=== PATIENT | male | born 1985 | race African-American/Black ===

== ENCOUNTER 2018-02-23 20:17 | Emergency (ER) | payer OTHER ==
[2018-02-23] MEDS ORDERED: TETANUS & DIPHTHERIA TOX,ADULT 0.5 ML VIAL ONE (21:09)
[2018-02-23] MEDS ORDERED: CEFAZOLIN SODIUM 1 GM/VIAL ONE (21:56)
[2018-02-23] MEDS ORDERED: WATER FOR INJ,STERILE 10 ML ONE (21:57)
--- NOTE | 2018-02-23 23:02 | ER ---
Nurse's Notes [facility] Name: Carrington Raines Age: 32 yrs Sex: Male : 1985 Arrival Date: 02/23/2018 Time: 20:18 Bed 16 Private MD: None, None Diagnosis: Displaced fracture of distal phalanx of left little finger;finger laceration Presentation: 02/23 20:15 Presenting complaint: Patient states: that he got his left pinky finger smashed in cell door at 1700. Transition of care: patient was not received from another setting of care. Onset of symptoms was February 23, 2018 at 17:00. Risk Assessment: Do you want to hurt yourself or someone else? Patient reports no desire to harm self or others. Initial Sepsis Screen: Does the patient meet any 2 criteria? No. Patient's initial sepsis screen is negative. Does the patient have a suspected source of infection? No. Patient's initial sepsis screen is negative. Care prior to arrival: Bleeding of injury controlled. 20:15 Method Of Arrival: Law Enforcement: [place] [employer] 20:15 Acuity: MEERA 4 Triage Assessment: 20:21 General: Appears uncomfortable, slender, Behavior is calm, cooperative, appropriate for age. Pain: Complains of pain in left little finger Pain currently is 8 out of 10 on a pain scale. Quality of pain is described as aching, throbbing, Pain began 3 hours ago. Is continuous, Aggravated by increased activity, repositioning. EENT: No deficits noted. Neuro: Level of Consciousness is awake, alert, obeys commands, Oriented to person, place, time, situation. Cardiovascular: No deficits noted. Respiratory: No deficits noted. GI: No deficits noted. : No deficits noted. Derm: Skin is pink, warm \T\ dry. Musculoskeletal: Circulation, motion, and sensation intact. Capillary refill < 3 seconds, Range of motion: limited in DIP of left little finger, PIP of left little finger and MCP of left little finger Reports pain in left little finger. Injury Description: Laceration sustained to left little finger is full thickness, 2.6 to 7.5 cm long, bleeding moderately, was sustained 2-4 hours ago. moderate bleeding noted at this time. A dressing was applied. Historical: - Allergies: 20:21 No Known Allergies; fc - Home Meds: 20:21 None [Active]; fc - PMHx: 20:21 None; fc - PSHx: 20:21 None; fc - Immunization history:: Last tetanus immunization: unknown. - Social history:: Smoking status: Patient/guardian denies using tobacco, Patient uses street drugs, marijuana. - Ebola Screening: : Patient negative for fever greater than or equal to 101.5 degrees Fahrenheit, and additional compatible Ebola Virus Disease symptoms Patient denies exposure to infectious person Patient denies travel to an Ebola-affected area in the 21 days before illness onset. Screenin:23 Abuse screen: Denies threats or abuse. Nutritional screening: No deficits noted. fc Tuberculosis screening: No symptoms or risk factors identified. Fall Risk None identified. Assessment: 20:42 Reassessment: No changes from previously documented assessment. Patient and/or family fc updated on plan of care and expected duration. Pain level reassessed. Patient is alert, oriented x 3, equal unlabored respirations, skin warm/dry/pink. Radiology in room to xray hand. 21:21 Reassessment: No changes from previously documented assessment. Patient and/or family fc updated on plan of care and expected duration. Pain level reassessed. Patient is alert, oriented x 3, equal unlabored respirations, skin warm/dry/pink. Waiting return call from ortho dept at [facility]. 22:45 Reassessment: Patient appears in no apparent distress at this time. Patient and/or bs1 family updated on plan of care and expected duration. Pain level reassessed. Patient is alert, oriented x 3, equal unlabored respirations, skin warm/dry/pink. SUNI Jurado at bedside suture laceration repair. 23:15 Reassessment: No changes from previously documented assessment. Patient and/or family bs1 updated on plan of care and expected duration. Pain level reassessed. Patient is alert, oriented x 3, equal unlabored respirations, skin warm/dry/pink. Vital Signs: 20:20 BP 138 / 95; Pulse 54; Resp 16; Pulse Ox 100% on R/A; Weight 83.91 kg; Height 6 ft. 1 fc in. (185.42 cm); Pain 8/10; 22:45 BP 143 / 72; Pulse 60; Resp 16; Temp 98(O); Pulse Ox 100% on R/A; Pain 0/10; bs1 20:20 Body Mass Index 24.41 (83.91 kg, 185.42 cm) ED Course: 20:18 Patient arrived in ED. 20:18 Palomo Jurado PA is PHCP. [facility] 20:18 Bin Heredia MD is Attending Physician. [facility] 20:18 None, None is Private Physician. 20:20 Chiara Poole, RN is Primary Nurse. aj1 20:21 Triage completed. fc 20:23 Arm band placed on Patient placed in an exam room. fc 20:23 Patient has correct armband on for positive identification. Call light in reach. guards fc at bedside. 20:49 Hand Left 3 View XRAY In Process Unspecified. EDMS 23:10 Finger splint applied to left pinky finger, wrapped in koban. Applied by MAXIME Nam bs1 tech, patient tolerated. 23:18 No provider procedures requiring assistance completed. Patient did not have IV access bs1 during this emergency room visit. Administered Medications: 20:22 Drug: Marcaine (0.5 %) 1 vials {Note: adminstered by SUNI Koenig.} Volume: 10 ml; aj1 Route: Infiltration; 21:12 Drug: Tetanus-Diphtheria Toxoid Adult 0.5 ml {Pizza Baker: [place]. Exp: aj1 04/16/2020. Lot #: [id number]. } Route: IM; Site: right deltoid; 21:53 Follow up: Response: No adverse reaction bs1 22:15 Drug: Ancef 1 grams Route: IM; Site: left gluteus; bs1 23:01 Follow up: Response: No adverse reaction bs1 Outcome: 23:02 Discharge ordered by . [facility] 23:18 Discharged to Law Enforcement bs1 23:18 Condition: stable 23:18 Discharge instructions given to police, Instructed on discharge instructions, follow up and referral plans. medication usage, Demonstrated understanding of instructions, follow-up care, medications, Prescriptions given X 1. 23:22 Patient left the ED. bs1 Signatures: Dispatcher [employer] EDMS Chiara Poole, AEVRY RN ajPalomo Carrillo PA PA jmm Chretien, Felicia, RN RN Janelle Osman RN RN bs1 Corrections: (The following items were deleted from the chart) 20:23 20:20 BP 138 / 95; Pulse 54bpm; Resp 16bpm; Pulse Ox 100% RA; 83.91 kg; Height 6 ft. 1 fc in.; BMI: 24.4; aj1 23:40 22:45 Reassessment: Patient appears in no apparent distress at this time. Patient bs1 and/or family updated on plan of care and expected duration. Pain level reassessed. Patient is alert, oriented x 3, equal unlabored respirations, skin warm/dry/pink. bs1
--- NOTE | 2018-02-23 23:02 | EDPHYS ---
Physician Documentation [facility] Name: Carrington Raines Age: 32 yrs Sex: Male : 1985 Arrival Date: 02/23/2018 Time: 20:18 Bed 16 Private MD: None, None ED Physician Bin Heredia HPI: 02/23 20:25 This 32 yrs old Male presents to ER via Law Enforcement with complaints of Finger jmm Injury. 20:25 The patient or guardian reports injury. jmm 20:25 The complaints affect the left little finger. jmm 20:25 Onset: The symptoms/episode began/occurred acutely, just prior to arrival. Associated jmm signs and symptoms: Pertinent positives: Pertinent negatives: fever, tingling distally. This is a 32 year old male with no chronic medical conditions that presents to the ED with left 5th finger pain beginning after his hand slammed against a cell door. Denies other injury. Unsure whether he is TD on tetajnus immunization . Historical: - Allergies: 20:21 No Known Allergies; fc - Home Meds: 20:21 None [Active]; fc - PMHx: 20:21 None; fc - PSHx: 20:21 None; fc - Immunization history:: Last tetanus immunization: unknown. - Social history:: Smoking status: Patient/guardian denies using tobacco, Patient uses street drugs, marijuana. - Ebola Screening: : Patient negative for fever greater than or equal to 101.5 degrees Fahrenheit, and additional compatible Ebola Virus Disease symptoms Patient denies exposure to infectious person Patient denies travel to an Ebola-affected area in the 21 days before illness onset. ROS: 20:25 Constitutional: Negative for fever, chills, and weight loss, Cardiovascular: Negative jmm for chest pain, palpitations, and edema, Respiratory: Negative for shortness of breath, cough, wheezing, and pleuritic chest pain, Abdomen/GI: Negative for abdominal pain, nausea, vomiting, diarrhea, and constipation. 20:25 MS/extremity: Positive for pain. 20:25 Skin: Positive for laceration(s). 20:25 Neuro: Negative for weakness. 20:25 All other systems are negative. Exam: 20:25 Constitutional: This is a well developed, well nourished patient who is awake, alert, jmm and in no acute distress. 20:25 Cardiovascular: Rate: normal. 20:25 Respiratory: the patient does not display signs of respiratory distress, Respirations: normal. 20:25 Abdomen/GI: Inspection: distension, is not seen. 20:25 Back: ROM is normal. 20:25 Musculoskeletal/extremity: FROM appreciated to the left 5th dip. < 2 sec distal cap refill, NVI. 20:25 Skin: 3 cm laceration noted to the left 5th distal phalanx which begins at the palmar surface and wraps around the nail bed to the level of the dip joint. 20:25 Neuro: Orientation: is normal, Mentation: is normal, Memory: is normal, Gait: is steady. Vital Signs: 20:20 BP 138 / 95; Pulse 54; Resp 16; Pulse Ox 100% on R/A; Weight 83.91 kg; Height 6 ft. 1 fc in. (185.42 cm); Pain 8/10; 22:45 BP 143 / 72; Pulse 60; Resp 16; Temp 98(O); Pulse Ox 100% on R/A; Pain 0/10; bs1 20:20 Body Mass Index 24.41 (83.91 kg, 185.42 cm) fc Laceration: 22:58 Wound Repair of 3cm ( 1.2in ) subcutaneous laceration to DIP of left little finger. [facility] Distal neuro/vascular/tendon intact. Anesthesia: Digital block administered with 3 mls of 0.5% marcaine. Wound prep: Extensive cleansing with betadine by ia, Copious irrigation. Skin closed with 9 5-0 Prolene using simple sutures and sterile technique. MDM: 20:24 Patient medically screened. [facility] 21:39 Data reviewed: vital signs, nurses notes. Physician consultation: I discussed the [facility] patient with Dr. Fernandez whom advised to have the patient follow up in orthopedic hand clinic and prescribe broad spectrum antibiotics. . 22:55 Differential diagnosis: open fracture, laceration. Counseling: I had a detailed [facility] discussion with the patient and/or guardian regarding: the historical points, exam findings, and any diagnostic results supporting the discharge/admit diagnosis, the presence of at least one elevated blood pressure reading (>120/80) during this emergency department visit, radiology results, the need for outpatient follow up, to return to the emergency department if symptoms worsen or persist or if there are any questions or concerns that arise at home. 06/11 20:19 Order name: Hand Left 3 View XRAY 02/23 22:59 Order name: Finger Splint; Complete Time: 23:18 [facility] 02/23 22:59 Order name: Dressing - Wound; Complete Time: 23:18 [facility] Administered Medications: 20:22 Drug: Marcaine (0.5 %) 1 vials {Note: adminstered by PA. 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 Exp: aj1 04/16/2020. Lot #: [id number]. } Route: IM; Site: right deltoid; 21:53 Follow up: Response: No adverse reaction bs1 22:15 Drug: Ancef 1 grams Route: IM; Site: left gluteus; bs1 23:01 Follow up: Response: No adverse reaction bs1 Disposition: 02/24 01:25 Co-signature as Attending Physician, Bin Heredia MD. [email or web address] Disposition: 02/23/18 23:02 Discharged to Home. Impression: Displaced fracture of distal phalanx of left little finger, finger laceration. - Condition is Stable. - Discharge Instructions: Finger Fracture, Laceration Care, Adult. - Prescriptions for Dicloxacillin 500 mg Oral Capsule - take 1 capsule by ORAL route every 6 hours for 10 days; 40 capsule. - Medication Reconciliation Form, Thank You Letter, Antibiotic Education, Prescription Opioid Use form. - Follow up: Private Physician; When: 1 week; Reason: Recheck today's complaints, Continuance of care. - Notes: The patient will need to follow up with [facility] orthopedic hand clinic in 1 week for reevalution. Please call tomorrow to set up an appointment. Due to the finger fracture and laceration there is a high risk of infection. Please take antibiotics as directed. Please return to the Emergency Department if you develop fever, increased pain, redness or drainage from the wound site. Signatures: Dispatcher [employer] Chiara Peñaloza RN RN aj1 Bin Heredia MD MD pkl Mickail, Joel, PA PA jmm Chretien, Felicia, RN RN fc Salazar, Brittany, RN RN bs1 Corrections: (The following items were deleted from the chart) 02/23 23:22 23:02 02/23/2018 23:02 Discharged to Home. Impression: Displaced fracture of distal bs1 phalanx of left little finger; finger laceration. Condition is Stable. Forms are Medication Reconciliation Form, Thank You Letter, Antibiotic Education, Prescription Opioid Use. Follow up: Private Physician; When: 1 week; Reason: Recheck today's complaints, Continuance of care. josh
--- NOTE | 2018-02-24 08:10 | RAD REPORT ---
EXAM DESCRIPTION: RAD -Hand Left 3 View - 02/23/2018 8:50 pm CLINICAL HISTORY: Left hand pain status post injury FINDINGS: A comminuted markedly displaced fracture involves the distal aspect of the fifth distal ph alanx. No dislocation is seen
== END 2018-02-23 23:22 | disposition home or self-care (01) ==
LOC: ER 20:17
PROC: 0JQK0ZZ Repair Left Hand Subcutaneous Tissue and Fascia, Open Approach (ICD-10-PCS; principal; 2018-02-23)
DX: S62.637A Displaced fracture of distal phalanx of left little finger, initial encounter for closed fracture (principal); S61.217A Laceration without foreign body of left little finger without damage to nail, initial encounter; W22.8XXA Striking against or struck by other objects, initial encounter; Y93.9 Activity, unspecified; Y92.89 Other specified places as the place of occurrence of the external cause; Z23 Encounter for immunization
CPT/HCPCS: 90714; 96372; 99284; J0690